=== PATIENT | male | born 1955 | race African-American/Black ===

== ENCOUNTER 2017-06-01 12:48 | Inpatient (IN) | payer OTHER ==
[~2017-06-01] VITALS: Ht 175.3 cm; Wt 100.7 kg
[2017-06-01] MEDS ORDERED: KETOROLAC 30MG/ML VIAL IV STA (13:24)
[2017-06-01] MEDS ORDERED: ASPIRIN 81MG TABLET PO ONE (13:30)
[2017-06-01 13:52] LABS: BASOPHILS % 0.6 % (0.0-2.0); EOSINOPHILS % 0.3 % (0.0-5.0); HEMATOCRIT. 45.9 % (42.0-52.0); HEMOGLOBIN. 15.6 g/dL (14.0-18.0); LYMPHOCYTES % 19.9 % (20.0-50.0); MEAN CORPUSCULAR HEMOGLOBIN 32.1 pg (28.0-32.0); MEAN CORPUSCULAR VOLUME 94.4 fL (80.0-94.0); MEAN PLATELET VOLUME 8.3 fl (7.4-10.4); MONOCYTES % 8.7 % (2.0-8.0); NEUTROPHILS % 70.5 % (40.0-76.0); PLATELET 198 x1000/uL (130-400); RED BLOOD CELL COUNT 4.86 mill/uL (4.7-6.1); RED CELL DISTRIBUTION WIDTH 13.4 % (11.6-14.6)
[2017-06-01 13:59] LABS: INR 1.1; PROTHROMBIN TIME 11.3 sec (9.4-11.6)
[2017-06-01 14:10] LABS: CARBON DIOXIDE 29 mEq/L (21-32); CHLORIDE 103 mEq/L (98-107); ETHANOL BLOOD < 10 mg/dL; TROPONIN I < 0.02 ng/mL (0.00-0.04)
[2017-06-01 14:20] LABS: PLATELET ESTIMATE NORMAL
[2017-06-01] MEDS ORDERED: AMLODIPINE 10MG TABLET PO SCH (16:00)
[2017-06-01] MEDS ORDERED: SODIUM CHLORIDE 0.9% 1,000 ML IV SCH (16:00)
[2017-06-01 17:27] LABS: HEPATITIS B SURFACE ANTIGEN NEGATIVE
[2017-06-01 17:55] LABS: HEPATITIS B CORE AB IGM NEGATIVE
[2017-06-01 21:10] VITALS: BP 151/94
[2017-06-01 21:35] VITALS: BP 151/94
[2017-06-01] MEDS ORDERED: ACETAMINOPHEN 325MG TABLET PO PRN ×2 (22:00→22:15)
[2017-06-01] MEDS ORDERED: CLONIDINE 0.1MG TABLET PO PRN (22:00)
[2017-06-01] MEDS ORDERED: ONDANSETRON HCL 4MG/2ML VIAL IV PRN (22:00)
[2017-06-01] MEDS ORDERED: MORPHINE SULFATE 2 MG/ML CPJ (NOT FOR IM USE) IV PRN (22:00)
[2017-06-01] MEDS: CLONIDINE 0.1MG TABLET PO PRN (23:09)
[2017-06-01] MEDS: SODIUM CHLORIDE 0.9% 1,000 ML IV SCH (23:09)
[2017-06-01] MEDS: MORPHINE SULFATE 10 MG/ML CPJ IV PRN (23:10)
[2017-06-02] VITALS (7 sets, daily range): BP systolic 111–165; BP diastolic 71–94
[2017-06-02 01:10] LABS: CREATINE KINASE 152 IU/L (39-308); CREATINE KINASE MB FRACTION 2.8 ng/mL (0.5-3.6); TROPONIN I < 0.02 ng/mL (0.00-0.04)
[2017-06-02 03:55] LABS: CLARITY URINE CLOUDY (CLEAR); COLOR URINE DARK YELLOW (YELLOW); GLUCOSE URINE NEGATIVE (NEGATIVE); KETONES URINE TRACE (NEGATIVE); LEUKOCYTE ESTERASE URINE 2+ (NEGATIVE); NITRITE URINE NEGATIVE (NEGATIVE); OCCULT BLOOD URINE NEGATIVE (NEGATIVE); PROTEIN URINE TRACE (NEGATIVE); SPECIFIC GRAVITY URINE 1.031 (1.005-1.030)
[2017-06-02 04:42] LABS: *AMPHETAMINES SCREEN URINE NEGATIVE (NEGATIVE); *BARBITURATES SCREEN URINE NEGATIVE (NEGATIVE); *BENZODIAZEPINES SCREEN URINE NEGATIVE (NEGATIVE); *COCAINE SCREEN URINE NEGATIVE (NEGATIVE); CANNABINOID URINE SCREEN NEGATIVE (NEGATIVE); METHADONE URINE SCREEN PRESUMTIVE POSITIVE (NEGATIVE); OPIATES URINE SCREEN PRESUMTIVE POSITIVE (NEGATIVE); PHENCYCLIDINE URINE SCREEN NEGATIVE (NEGATIVE)
[2017-06-02] MEDS ORDERED: METH10TA2 PO (08:12)
[2017-06-02 08:13] LABS: CARBON DIOXIDE 28 mEq/L (21-32); CHLORIDE 107 mEq/L (98-107); CREATINE KINASE 143 IU/L (39-308); CREATINE KINASE MB FRACTION 2.6 ng/mL (0.5-3.6); TROPONIN I < 0.02 ng/mL (0.00-0.04)
[2017-06-02] MEDS: SODIUM CHLORIDE 0.9% 1,000 ML IV SCH ×2 (08:35→20:39)
[2017-06-02] MEDS: AMLODIPINE 10MG TABLET PO SCH (08:35)
[2017-06-02] MEDS: MORPHINE SULFATE 10 MG/ML CPJ IV PRN ×3 (08:35→20:39)
[2017-06-02] MEDS: ONDANSETRON HCL 4MG/2ML VIAL IV PRN (08:42)
[2017-06-02] MEDS: POTASSIUM CHLORIDE 20MEQ TABLET SR PO SCH (11:04)
[2017-06-02] MEDS: METOPROLOL TARTRATE 25MG TABLET PO SCH ×2 (11:05→20:39)
[2017-06-02] MEDS: METHADONE HCL 10MG TABLET PO SCH (13:00)
[2017-06-02 16:39] LABS: CREATINE KINASE 136 IU/L (39-308); CREATINE KINASE MB FRACTION 2.8 ng/mL (0.5-3.6); TROPONIN I < 0.02 ng/mL (0.00-0.04)
[2017-06-02] MEDS ORDERED: PNEUMOCOCCAL 23-VAL P-SAC VAC 0.5 ML IM ONE (20:45)
[2017-06-02] MEDS ORDERED: INFLUENZA VIRUS VACCINE 0.5ML SYR IM ONE (20:45)
[2017-06-02] MEDS: CLONIDINE 0.1MG TABLET PO PRN (23:55)
[2017-06-03 04:00] VITALS: BP 138/87
[2017-06-03] MEDS: MORPHINE SULFATE 10 MG/ML CPJ IV PRN ×2 (05:20→22:26)
[2017-06-03] MEDS: SODIUM CHLORIDE 0.9% 1,000 ML IV SCH ×2 (05:23→15:00)
[2017-06-03 07:50] LABS: BASOPHILS % 0.6 % (0.0-2.0); EOSINOPHILS % 1.1 % (0.0-5.0); HEMATOCRIT. 43.5 % (42.0-52.0); HEMOGLOBIN. 14.4 g/dL (14.0-18.0); LYMPHOCYTES % 27.9 % (20.0-50.0); MEAN CORPUSCULAR HEMOGLOBIN 31.6 pg (28.0-32.0); MEAN CORPUSCULAR VOLUME 95.6 fL (80.0-94.0); MEAN PLATELET VOLUME 8.8 fl (7.4-10.4); MONOCYTES % 8.5 % (2.0-8.0); NEUTROPHILS % 61.9 % (40.0-76.0); PLATELET 166 x1000/uL (130-400); RED BLOOD CELL COUNT 4.55 mill/uL (4.7-6.1); RED CELL DISTRIBUTION WIDTH 13.5 % (11.6-14.6)
[2017-06-03 08:00] VITALS: BP 140/73
[2017-06-03 08:20] LABS: A/G RATIO 0.7 (0.7-1.7); ALBUMIN 3.7 g/dL (2.9-4.4); ALPHA-1-GLOBULIN 0.2 g/dL (0.0-0.4); ALPHA-2-GLOBULIN 1.1 g/dL (0.4-1.0); BETA GLOBULIN 1.4 g/dL (0.7-1.3); GAMMA GLOBULINS 2.3 g/dL (0.4-1.8); M-SPIKE Not Observed g/dL (Not Observed); TOTAL PROTEIN SERUM 8.7 g/dL (6.0-8.5)
[2017-06-03 09:51] LABS: CARBON DIOXIDE 28 mEq/L (21-32); CHLORIDE 109 mEq/L (98-107); HDL CHOLESTEROL 41 mg/dL (40-59); LDL CHOLESTEROL 110 mg/dL (5-100); PHOSPHORUS 3.1 mg/dL (2.5-4.9)
[2017-06-03] MEDS: AMLODIPINE 10MG TABLET PO SCH (10:07)
[2017-06-03] MEDS: POTASSIUM CHLORIDE 20MEQ TABLET SR PO SCH (10:07)
[2017-06-03] MEDS: METOPROLOL TARTRATE 25MG TABLET PO SCH ×2 (10:07→20:18)
[2017-06-03] MEDS: METHADONE HCL 10MG TABLET PO SCH (10:08)
[2017-06-03 12:00] VITALS: BP 139/70
[2017-06-03] MEDS ORDERED: METHADONE HCL 10MG TABLET PO SCH (12:00)
[2017-06-03 14:57] LABS: HEPATITIS A AB IGM NEGATIVE (NEGATIVE)
[2017-06-03 16:00] VITALS: BP 136/92
[2017-06-03 20:00] VITALS: BP 120/77
[2017-06-03] MEDS: LEVOFLOXACIN 500MG PREMIX 100 ML IV SCH (20:18)
[2017-06-04] VITALS (7 sets, daily range): BP systolic 113–170; BP diastolic 73–92
[2017-06-04] MEDS: SODIUM CHLORIDE 0.9% 1,000 ML IV SCH (02:38)
[2017-06-04] MEDS: CLONIDINE 0.1MG TABLET PO PRN (02:38)
[2017-06-04 06:12] LABS: ALBUMIN URINE Note: % (.); TOTAL PROTEIN RANDOM URINE 52.5 mg/dL (Not Estab.)
[2017-06-04] MEDS ORDERED: REGADENOSON 0.4 MG/5 ML IV ONE ×2 (07:45→09:21)
[2017-06-04] MEDS: AMLODIPINE 10MG TABLET PO SCH (10:57)
[2017-06-04] MEDS: POTASSIUM CHLORIDE 20MEQ TABLET SR PO SCH (10:57)
[2017-06-04] MEDS: METHADONE HCL 10MG TABLET PO SCH (10:57)
[2017-06-04] MEDS: ONDANSETRON HCL 4MG/2ML VIAL IV PRN (14:01)
[2017-06-04] MEDS ORDERED: NITROGLYCERIN OINT 1GM/INCH UDPKT TD NR (14:45)
[2017-06-04] MEDS: ASPIRIN 81MG TABLET PO SCH (15:38)
[2017-06-04] MEDS: MORPHINE SULFATE 10 MG/ML CPJ IV PRN (18:47)
[2017-06-04] MEDS ORDERED: HEPARIN 5000 UNITS/ML VIAL IV PRN ×2 (19:15)
[2017-06-04] MEDS: LEVOFLOXACIN 500MG PREMIX 100 ML IV SCH (20:54)
[2017-06-04] MEDS: METOPROLOL TARTRATE 50MG TABLET PO SCH (20:54)
[2017-06-04 21:21] LABS: INR 1.1; PARTIAL THROMBOPLASTIN TIME 24.5 sec (23.4-31.0); PROTHROMBIN TIME 11.6 sec (9.4-11.6)
[2017-06-04] MEDS ORDERED: HEPARIN 5000 UNITS/ML VIAL IV NR (21:45)
[2017-06-04] MEDS ORDERED: HEPARIN 25,000 UNITS PREMIX 500 ML IV PRN (22:00)
[2017-06-05] VITALS (7 sets, daily range): BP systolic 109–131; BP diastolic 63–82
[2017-06-05 07:05] LABS: BASOPHILS % 0.6 % (0.0-2.0); EOSINOPHILS % 2.3 % (0.0-5.0); HEMATOCRIT. 37.4 % (42.0-52.0); HEMOGLOBIN. 12.4 g/dL (14.0-18.0); LYMPHOCYTES % 34.5 % (20.0-50.0); MEAN CORPUSCULAR HEMOGLOBIN 31.8 pg (28.0-32.0); MEAN CORPUSCULAR VOLUME 96.3 fL (80.0-94.0); MONOCYTES % 11.9 % (2.0-8.0); NEUTROPHILS % 50.7 % (40.0-76.0); PLATELET 136 x1000/uL (130-400); RED BLOOD CELL COUNT 3.88 mill/uL (4.7-6.1); RED CELL DISTRIBUTION WIDTH 13.3 % (11.6-14.6)
[2017-06-05 08:04] LABS: CARBON DIOXIDE 25 mEq/L (21-32); CHLORIDE 108 mEq/L (98-107); PHOSPHORUS 2.6 mg/dL (2.5-4.9)
[2017-06-05] MEDS: MORPHINE SULFATE 10 MG/ML CPJ IV PRN (08:48)
[2017-06-05] MEDS ORDERED: LIDOCAINE HCL 1% 20ML VIAL (Pyxis) INJ ONE (08:56)
[2017-06-05] MEDS ORDERED: SODIUM CHLORIDE 0.9% 1,000 ML IV SCH (09:30)
[2017-06-05] MEDS ORDERED: IOHEXOL-350 100 ML BOTTLE ONE (10:21)
[2017-06-05] MEDS ORDERED: ACETYLCYSTEINE 200MG/ML 20% VIAL 4ML PO SCH (11:00)
[2017-06-05] MEDS: METHADONE HCL 10MG TABLET PO SCH (11:12)
[2017-06-05] MEDS: ASPIRIN 81MG TABLET PO SCH (11:12)
[2017-06-05] MEDS: POTASSIUM CHLORIDE 20MEQ TABLET SR PO SCH (11:12)
[2017-06-05] MEDS: METOPROLOL TARTRATE 50MG TABLET PO SCH (11:12)
[2017-06-05] MEDS: AMLODIPINE 10MG TABLET PO SCH (11:13)
== END 2017-06-05 19:31 | disposition short-term general hospital (02) | DRG 463 ==
LOC: ER 12:57 → 7WST 15:26 → ENRESERV 16:42 → CANBEDREQ 20:03 → ER 21:10
PROVIDERS: ADMIT Internal Medicine; ATTEND Internal Medicine
PROC: 02HV33Z Insertion of Infusion Device into Superior Vena Cava, Percutaneous Approach (ICD-10-PCS; principal; 2017-06-05)
PROC: B5181ZA Fluoroscopy of Superior Vena Cava using Low Osmolar Contrast, Guidance (ICD-10-PCS; 2017-06-05)
PROC: B548ZZA Ultrasonography of Superior Vena Cava, Guidance (ICD-10-PCS; 2017-06-05)
DX: N39.0 Urinary tract infection, site not specified (principal); N17.0 Acute kidney failure with tubular necrosis; I10 Essential (primary) hypertension; E87.6 Hypokalemia; F17.200 Nicotine dependence, unspecified, uncomplicated; W18.30XA Fall on same level, unspecified, initial encounter; R74.0 Nonspecific elevation of levels of transaminase and lactic acid dehydrogenase [LDH]; I73.9 Peripheral vascular disease, unspecified; Z82.49 Family history of ischemic heart disease and other diseases of the circulatory system; Y93.89 Activity, other specified; Y92.89 Other specified places as the place of occurrence of the external cause; Y99.8 Other external cause status
CPT/HCPCS: 36415; 36569; 71010; 71275; 73502; 75635; 76700; 76937; 77001; 78452; 78582; 80048; 80053; 80061; 80305; 81001; 82550; 82553; 82962; 83735; 83880; 84100; 84155; 84156; 84165; 84166; 84484; 85025; 85610; 85730; 86705; 86709; 86803; 87077; 87086; 87186; 87340; 90686; 90732; 93005; 93017; 93306; 93923; 93970; 96374; 99285; 99406; A9500; A9558; C1725; G0482; J1644; J1885; J1956; J2270; J2405; J2785; J3490; J7030; J7050; J7608; Q9967

== ENCOUNTER 2020-08-19 16:58 | Emergency (ER) | payer MEDICARE, MEDICAID ==
[~2020-08-19] VITALS: Ht 177.8 cm; Wt 120.0 kg
[~2020-08-19 16:58] MED LIST: METH10TA2 PO
[2020-08-19] MEDS ORDERED: ALBUTEROL (0.083%) 2.5MG/3ML NEB HHN STA (17:42)
[2020-08-19] MEDS ORDERED: IPRATROPIUM BROMIDE (0.02%) 0.5MG/2.5ML NEB HHN STA (17:42)
[2020-08-19] MEDS ORDERED: MAGNESIUM 2 G PREMIX 50 ML IV STA (17:42)
[2020-08-19] MEDS ORDERED: MORPHINE SULFATE 2 MG/ML CPJ (NOT FOR IM USE) IV ONE (18:00)
[2020-08-19] MEDS ORDERED: MORPHINE SULFATE 4 MG/ML CPJ (NOT FOR IM USE) IV ONE (19:15)
[2020-08-19 22:20] VITALS: BP 181/84
== END 2020-08-19 22:46 | disposition home or self-care (01) ==
LOC: ER 16:58
DX: J44.9 Chronic obstructive pulmonary disease, unspecified (principal); E11.9 Type 2 diabetes mellitus without complications; I10 Essential (primary) hypertension; F11.10 Opioid abuse, uncomplicated
CPT/HCPCS: 80048; 93005; 99283